=== PATIENT | female | born 1950 | race Caucasian/White ===

== ENCOUNTER 2019-01-04 12:13 | Emergency (ER) | payer BC, MEDICARE ==
[~2019-01-04] VITALS: Ht 167.6 cm; Wt 80.0 kg
[2019-01-04 12:20] VITALS: BP 123/78
[2019-01-04] MEDS ORDERED: TETanus/Pertussis (Acell)/Diphther VAC/PF (Tdap-Adult) 0.5ml syringe IM ONE (14:10)
== END 2019-01-04 15:37 | disposition home or self-care (01) ==
LOC: ER 12:15 → EDBD 12:15 → ER 15:37
DX: S81.011A Laceration without foreign body, right knee, initial encounter (principal); I48.91 Unspecified atrial fibrillation; D68.51 Activated protein C resistance; Z91.040 Latex allergy status; W01.0XXA Fall on same level from slipping, tripping and stumbling without subsequent striking against object, initial encounter; Y93.89 Activity, other specified; Y92.89 Other specified places as the place of occurrence of the external cause; Y99.8 Other external cause status
CPT/HCPCS: 12004; 90471; 99284